=== PATIENT | male | born 1995 | race Caucasian/White ===

== ENCOUNTER → 2020-08-11 | Outpatient (CLI) | payer OTHER ==
[~2020-08-11] MED LIST: LOPERAMIDE2 M1 PO; ZOFRAN ODT 4 MG4 MG SL
== END ==
LOC: EROP 20:39
DX: R51.9 Headache, unspecified (principal); M79.10 Myalgia, unspecified site; R50.9 Fever, unspecified; Z20.822 Contact with and (suspected) exposure to COVID-19
CPT/HCPCS: U0002

== ENCOUNTER → 2021-02-17 | Outpatient (CLI) | payer BC | LOC: RAD 14:42 | DX: U07.1 COVID-19 (principal) | CPT/HCPCS: 71046 ==

== ENCOUNTER → 2021-05-05 | Outpatient (CLI) | payer BC | LOC: EMI 14:45 | DX: S46.311A Strain of muscle, fascia and tendon of triceps, right arm, initial encounter (principal); M25.521 Pain in right elbow; X50.0XXA Overexertion from strenuous movement or load, initial encounter; R93.6 Abnormal findings on diagnostic imaging of limbs | CPT/HCPCS: 73221 ==

== ENCOUNTER 2021-08-16 07:04 | Emergency (ER) | payer BC ==
[2021-08-16 08:18] LABS: HEMOGLOBIN 15.1 gm/dl (14.0-17.5); RED BLOOD COUNT 5.17 M/UL (4.20-5.50)
[2021-08-16 08:44] LABS: BUN/CREATININE RATIO 14 (0-10)
== END 2021-08-16 09:25 | disposition home or self-care (01) ==
LOC: ER1 07:04
PROVIDERS: Physician Assistant
DX: R51.9 Headache, unspecified (principal); R07.89 Other chest pain; R11.2 Nausea with vomiting, unspecified; J45.909 Unspecified asthma, uncomplicated; Z20.822 Contact with and (suspected) exposure to COVID-19
CPT/HCPCS: 71045; 80053; 82550; 82553; 83874; 84484; 85025; 85379; 93005; 96374; 99285; J1885; U0002